=== PATIENT | female | born 1950 | race Caucasian/White ===

== ENCOUNTER 2020-12-12 11:47 | Outpatient (REF) | payer BC, SELFPAY ==
--- NOTE | ~2020-12-12 | XR_ITS ---
EXAMINATION: KNEE X-RAY CLINICAL INFORMATION: Pain COMPARISON: Previous exam June 2017 TECHNIQUE: Standing, lateral and sunrise view of both knees FINDINGS: Right: Bone alignment is normal. No fracture or dislocation is seen. There is arthritis at the femoral tibial and patellofemoral joints with joint space narrowing and osteophyte formation. There is a small joint effusion. Left: Bone alignment is normal. No fracture or dislocation is seen. There is arthritis at the femoral tibial and patellofemoral joints with joint space narrowing and osteophyte formation. There is a small joint effusion. XR/XR knee RT 2V IMPRESSION: Bilateral arthritis.
--- NOTE | ~2020-12-12 | XR_ITS ---
EXAMINATION: KNEE X-RAY CLINICAL INFORMATION: Pain COMPARISON: Previous exam June 2017 TECHNIQUE: Standing, lateral and sunrise view of both knees FINDINGS: Right: Bone alignment is normal. No fracture or dislocation is seen. There is arthritis at the femoral tibial and patellofemoral joints with joint space narrowing and osteophyte formation. There is a small joint effusion. Left: Bone alignment is normal. No fracture or dislocation is seen. There is arthritis at the femoral tibial and patellofemoral joints with joint space narrowing and osteophyte formation. There is a small joint effusion. XR/XR knee LT 2V IMPRESSION: Bilateral arthritis.
--- NOTE | ~2020-12-12 | XR_ITS ---
EXAMINATION: KNEE X-RAY CLINICAL INFORMATION: Pain COMPARISON: Previous exam June 2017 TECHNIQUE: Standing, lateral and sunrise view of both knees FINDINGS: Right: Bone alignment is normal. No fracture or dislocation is seen. There is arthritis at the femoral tibial and patellofemoral joints with joint space narrowing and osteophyte formation. There is a small joint effusion. Left: Bone alignment is normal. No fracture or dislocation is seen. There is arthritis at the femoral tibial and patellofemoral joints with joint space narrowing and osteophyte formation. There is a small joint effusion. XR/XR knee standing BI IMPRESSION: Bilateral arthritis.
== END 2020-12-12 11:48 | disposition home or self-care (01) ==
LOC: HO.HOSX 11:47
PROVIDERS: Visit Provider Orthopaedic Surgery
DX: M17.0 Bilateral primary osteoarthritis of knee (principal)
CPT/HCPCS: 20610; 73560; 73565; J1100

== ENCOUNTER → 2021-05-22 09:16 | Outpatient (BNVA) | payer BC, SELFPAY | PROVIDERS: Visit Provider Orthopaedic Surgery | DX: M17.12 Unilateral primary osteoarthritis, left knee (principal) | CPT/HCPCS: 20610; J1100 ==

== ENCOUNTER 2021-10-23 10:00 | Outpatient (RCR) | payer MEDICARE, SELFPAY | END 2021-10-23 10:31 | disposition home or self-care (01) | LOC: HO.PT 10:00 | PROVIDERS: PCP Internal Medicine; Visit Provider Advanced Practice Midwife | DX: R15.1 Fecal smearing (principal); N95.2 Postmenopausal atrophic vaginitis | CPT/HCPCS: 97110; 97112; 97140; 97162 ==

== ENCOUNTER → 2021-11-27 13:39 | Outpatient (BNVA) | payer MEDICARE, SELFPAY | PROVIDERS: PCP Internal Medicine; Visit Provider Orthopaedic Surgery | DX: M17.12 Unilateral primary osteoarthritis, left knee (principal) | CPT/HCPCS: 20610; 99212; J1100 ==

== ENCOUNTER 2023-07-17 09:01 | Emergency (ER) | payer MEDICARE, SELFPAY ==
--- NOTE | ~2023-07-17 | XR_ITS ---
EXAMINATION: XR KNEE, RIGHT CLINICAL INFORMATION: Pain. No trauma. COMPARISON: 12/12/2020 TECHNIQUE: Four views of the right knee. FINDINGS: No acute findings compared to 12/12/2020. Tricompartmental osteophyte formation. Chronic severe loss of patellofemoral joint space. Small joint effusion is present. XR/XR knee RT 3V IMPRESSION: * Chronic tricompartmental osteoarthritis of the right knee. The joint degeneration is severe at the patellofemoral compartment and moderate at the tibiofemoral compartments. * Small joint effusion. * No new observations compared to 12/12/2020.
[2023-07-17 09:03] VITALS: BP 157/60; PULSE 91; RESP 19; TEMP 36.6; O2SAT 98; BMI 24.1
--- NOTE | 2023-07-17 09:24 | PC.NURSE ---
patient a&ox3, awaiting radiology for xray, family at bedside, call pulliam within reach, will continue to monitor
--- NOTE | 2023-07-17 10:55 | ED_ITS ---
HPI - General Adult General Chief complaint: Extremity Injury, Lower Stated complaint: right knee pain Time Seen by Provider: 07/17/23 09:17 History of Present Illness HPI narrative: Patient complains of right knee pain without trauma starting about a week ago, patient does have a history of osteoarthritis in the knee but it has not bothered her for a long time, she can walk with a limp but it is painful, she called her orthopedist who can see her in 2 weeks and she is hoping for steroid shot She denies injury fever chills she denies any rashes no redness no warmth no numbness weakness or tingling Related Data Home Medications ?Medication ?Instructions ?Recorded ?Confirmed amlodipine 5 mg tablet 5 mg PO DAILY 12/12/20 11/27/21 atorvastatin 20 mg tablet 20 mg PO DAILY 12/12/20 11/27/21 losartan 50 mg tablet 50 mg PO DAILY 12/12/20 11/27/21 oxybutynin topical 12/12/20 11/27/21 estrone 5 mg/mL intramuscular mg IM 11/27/21 11/27/21 suspension Allergies Allergy/AdvReac Type Severity Reaction Status Date / Time lisinopril AdvReac Unknown cough Verified 07/17/23 09:05 [facility] Past Medical History Source: nursing notes reviewed Medical History Hypertension Surgical History H/O: hysterectomy Social History Social History Advance Directives: No Advance Directives Information Provided: No Current occupational status: retired Physical Exam ED Vital Signs: Vital Signs - 24 hr 07/17/23 09:03 Temperature 98 F Pulse Rate 91 Respiratory Rate 19 Blood Pressure 157/60 H Pulse Oximetry 98 Oxygen Delivery Method Room Air BMI result Body Mass Index 24.1 General appearance comfortable no acute distress Head is normocephalic atraumatic Neck is supple Respiratory no distress The right knee had some mild swelling it extends fully to 180 it has not red or warm she can do a straight leg raise there was medial tenderness, no obvious large effusion, skin is intact and normal in appearance and neurovascular intact distal Other extremities normal range of motion Course Course Course Narrative: X-ray showed tricompartmental osteoarthritis, degenerative disease Patient will follow with her orthopedist as needed for steroid shot if it does not get better and she will use Tylenol and is given an Kasi bandage and referral to Dr. Ramesh Discharge Plan Discharge Clinical Impression: Osteoarthritis of right knee Patient Disposition: Home, Self-Care Additional Instructions: X-ray confirmed osteoarthritis and her symptoms are very typical of osteoarthritis with worsening pain without injury This usually waxes and wanes and may get better with minimal treatment but if not improving follow with orthopedist for possible steroid injection Return any time any worse condition or any concerns Prescriptions: No Action oxybutynin topical atorvastatin 20 mg tablet 20 mg PO DAILY losartan 50 mg tablet 50 mg PO DAILY amlodipine 5 mg tablet 5 mg PO DAILY estrone 5 mg/mL suspension IM Referrals: Milton Ramesh MD [Physician] - (Right knee osteoarthritis) Print Language: Urdu
[2023-07-17 11:09] VITALS: BP 157/60; PULSE 91; RESP 19; TEMP 36.6; O2SAT 98
== END 2023-07-17 11:10 | disposition home or self-care (01) ==
PROVIDERS: Emergency Provider Emergency Medicine
DX: M17.11 Unilateral primary osteoarthritis, right knee (principal); M25.561 Pain in right knee; Z79.899 Other long term (current) drug therapy; Z79.02 Long term (current) use of antithrombotics/antiplatelets
CPT/HCPCS: 73562; 99282; 99283

== ENCOUNTER 2023-07-23 11:18 | Outpatient (AMB) | payer MEDICARE, SELFPAY ==
--- NOTE | 2023-07-23 12:05 | MHC.OFFVIS ---
Intake Visit Reasons: RT knee injection Intake Note: Stacy is a 72 year old female who presents today for a right knee injection. Patient reports that the history of injections are helpful for about 6 months. She would like to the have the right knee injected today Allergies lisinopril Adverse Reaction (Unknown, Verified 07/17/23 09:05) cough HPI HPI RT knee injection: Details: This is a 72 yo F with right knee pain. She has a history of left knee injections which are helpful. Her right knee, however, has been bothering her for months. She denies injury. She describes medial joint line pain with ambulation and at night. PFSH Medical History Hypertension Surgical History H/O: hysterectomy Social History Current occupational status: retired Physical Exam Const General: no acute distress and alert Orientation/consciousness: patient oriented x3 Neuro General: patient oriented x3 Extrem Other: right Knee: Skin C/D/I Varus alignement with mild medial TTP mild effusion Office Procedures Joint Inj/Aspir; Non-Pain Clin Coding Procedure code (CPT) selection complete Joint Injection/Drain Joint Injection/Drain Details: Injected 1 mL of Decadron and 3 mL 1% lidocaine and 3 mL of 0.25% Marcaine. Site was prepped using aseptic technique. Patient tolerated the procedure well. Primary Site: right knee Approach Used: anterolateral Coding - Large joint Procedure code (CPT) selection complete Results Reviewed Results Reviewed: I personally reviewed relevant radiographs. Moderate to severe right knee OA Assessment & Plan Assessment & Plan (1) Tricompartment osteoarthritis of knees, bilateral: Code(s): M17.0 - Bilateral primary osteoarthritis of knee Category: Medical Plan: Right knee OA. I injected her right knee today. She may follow up in 3 months or sooner if her symptoms worsen. Coding Level of Care Code Est Pt Level 3 (54671) Diagnoses Tricompartment osteoarthritis of knees, bilateral M17.0 CPT Codes Coding - Large joint: 10455 - Large joint ([id number])
== END 2023-07-23 13:58 | disposition home or self-care (01) ==
PROVIDERS: PCP Internal Medicine; Visit Provider Orthopaedic Surgery
DX: M17.0 Bilateral primary osteoarthritis of knee (principal)
CPT/HCPCS: 20610; 99213

== ENCOUNTER → 2023-07-23 11:18 | Outpatient (BNVA) | payer MEDICARE, SELFPAY | PROVIDERS: PCP Internal Medicine; Visit Provider Orthopaedic Surgery | DX: M17.0 Bilateral primary osteoarthritis of knee (principal) | CPT/HCPCS: 20610; 99212; J0665; J1100 ==